=== PATIENT | female | born 1980 | race African-American/Black ===

== ENCOUNTER 2018-10-23 23:37 | Emergency (ER) | payer MEDICARE, MEDICAID ==
[~2018-10-23] VITALS: Ht 154.9 cm; Wt 81.6 kg
[~2018-10-23 23:37] MED LIST: CIPROFLOXACIN500 M2 ORAL; NAPROSYN500 M1 ORAL; NKM
--- NOTE | 2018-10-24 | NUR ---
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
[2018-10-24 00:30] VITALS: BP 113/68
[2018-10-24 00:57] LABS: BASOPHILS % (AUTO) 0.8 % (0.0-2.0); EOSINOPHILS % (AUTO) 1.3 % (0.0-3.0); HEMATOCRIT 35.7 % (37.0-47.0); HEMOGLOBIN 11.5 G/DL (12.0-16.0); LYMPHOCYTES % (AUTO) 27.8 % (20.0-45.0); MEAN CORPUSCULAR VOLUME 87 FL (80-99); MONOCYTES % (AUTO) 7.2 % (1.0-10.0); NEUTROPHILS % (AUTO) 62.9 % (45.0-75.0); PLATELET COUNT 223 K/UL (150-450); RED BLOOD COUNT 4.12 M/UL (4.20-5.40); RED CELL DISTRIBUTION WIDTH 15.6 % (11.6-14.8); WHITE BLOOD COUNT 8.7 K/UL (4.8-10.8)
[2018-10-24] MEDS ORDERED: ACETAMINOPHEN-1 EAC1 ORAL (01:00)
--- NOTE | 2018-10-24 01:00 | NUR ---
ED Nurse Note: Pt very hard iv stick, many nurses attempted, md changed order to oral zofran and im morphine, as pt being prepared for med, pt refused and md at bedside and placed jugular line, pt labs then drawn and pt now to be medicated ivp again, oral zofran returned and morphine given ivp, pt on cardiac monitoring, pt asking for morphine constantly, will continue to closely montior.
--- NOTE | 2018-10-24 01:00 | Emergency Room Report ---
History of Present Illness General Chief Complaint: Gastrointestinal Bleed Source: Patient Present Illness HPI Is a 38-year-old female whose been here multiple time for different type of pain complaint. She presents with chief complaint of abdominal pain with rectal bleeding. She saw her primary care sent in for evaluation. Patient pain of diffuse abdominal pain with nausea and vomiting. No diarrhea. She had an enema and noticed some blood when she wiped. Denies any other complaint. Pain is 9 out of 10. No radiation. Vomiting is nonbloody nonbilious. Never had rectal bleeding before. Allergies: Coded Allergies: IBUPROFEN (Verified Allergy, Unknown, 10/23/18) KETOROLAC (Verified Allergy, Unknown, 10/23/18) Uncoded Allergies: VICODIN (Adverse Reaction, Severe, DIZZINESS,LIGHT HEADED, 05/15/11) Patient History Past Medical History: see triage record, old chart reviewed Past Surgical History: other Pertinent Family History: none Social History: Denies: smoking Last Menstrual Period: 10/06/2018 Now: No : 1 Para: 1 Immunizations: other Reviewed Nursing Documentation: PMH: Agreed; PSxH: Agreed Nursing Documentation-PMH Past Medical History: No History, Except For Hx Cardiac Problems: No - OVARIAN CYST Review of Systems Eye: Denies: eye pain, blurred vision ENT: Denies: ear pain, nose congestion, throat swelling Respiratory: Denies: cough, shortness of breath Cardiovascular: Denies: chest pain, palpitations Gastrointestinal: Reports: abdominal pain, nausea, vomiting; Denies: diarrhea Musculoskeletal: Denies: back pain, joint pain Skin: Denies: rash Neurological: Denies: headache, numbness Endocrine: Denies: increased thirst, increased urine Hematologic/Lymphatic: Denies: easy bruising All Other Systems: negative except mentioned in HPI Physical Exam Vital Signs Date Time Temp Pulse Resp B/P (MAP) Pulse Ox O2 Delivery O2 Flow Rate FiO2 10/23/18 23:41 98.1 98 16 100/64 100 Room Air vitals normal Sp02 EP Interpretation: reviewed, normal General Appearance: well appearing, no apparent distress, alert Head: normocephalic, atraumatic Eyes: bilateral eye PERRL, bilateral eye EOMI ENT: hearing grossly normal, normal pharynx Neck: full range of motion, supple, no meningismus Respiratory: chest non-tender, lungs clear, normal breath sounds Cardiovascular #1: regular rate, rhythm, no murmur Gastrointestinal: normal bowel sounds, no mass, no organomegaly, no bruit, non- distended, tenderness - Mild, diffuse, soft Rectal: other - No hemorrhoids. Brown stool. Heme-negative. Musculoskeletal: back normal, gait/station normal, normal range of motion Psychiatric: mood/affect normal Skin: warm/dry Medical Decision Making Diagnostic Impression: Primary Impression: Abdominal pain Qualified Codes: R10.84 - Generalized abdominal pain Additional Impression: Rectal bleeding ER Course Patient with abdominal pain. No evidence of any acute abdomen or obstruction. No evidence of appendicitis. The source of rectal bleeding this could be internal hemorrhoid. There is no evidence of any bleeding here. No vomiting here. Hemoglobin stable. We'll discharge home. Lab Results Impression labs normal CT/MRI/US Diagnostic Results CT/MRI/US Diagnostic Results : Imaging Test Ordered: CT abdomen and pelvis Impression negative per radiologist Last Vital Signs Date Time Temp Pulse Resp B/P (MAP) Pulse Ox O2 Delivery O2 Flow Rate FiO2 10/23/18 23:41 98.1 98 16 100/64 100 Room Air Status: improved Disposition: HOME, SELF-CARE Condition: Stable Scripts Acetaminophen With Codeine (T#3) (TYLENOL #3 TAB*) Y Tab 1 TAB ORAL Q8H PRN for For Pain, #20 TAB Prov: Constantino Davies MD 10/24/18 Referrals: Laxmi Forrester MD (PCP) Additional Instructions: Follow-up with your doctor in 7 days. You may need a referral to see a jewelry maker. Return of worse. Constantino Davies MD Oct 24, 2018 01:01
[2018-10-24 01:08] LABS: ANION GAP 11 mmol/L (5-15); BLOOD UREA NITROGEN 11 mg/dL (7-18); CARBON DIOXIDE 25 MMOL/L (21-32); CHLORIDE 105 MMOL/L (98-107); CREATININE 0.9 MG/DL (0.55-1.30); POTASSIUM 3.9 MMOL/L (3.5-5.1); SODIUM 141 MMOL/L (136-145)
[2018-10-24 01:13] LABS: ALANINE AMINOTRANSFERASE 27 U/L (12-78); ALBUMIN 3.5 G/DL (3.4-5.0); ALKALINE PHOSPHATASE 75 U/L (46-116); ASPARTATE AMINO TRANSFERASE 28 U/L (15-37); BILIRUBIN,TOTAL 0.2 MG/DL (0.2-1.0)
[2018-10-24] MEDS ORDERED: Morphine Sulfate 4mg/ml Inj (IV USE ONLY) IVP ONE ×4 (01:15→02:00)
[2018-10-24 01:16] LABS: BILIRUBIN, URINE NEGATIVE (NEGATIVE); GLUCOSE, URINE (UA) NEGATIVE (NEGATIVE); KETONES,URINE NEGATIVE (NEGATIVE); LEUKOCYTE ESTERASE ,URINE 1+ (NEGATIVE); NITRITE,URINE NEGATIVE (NEGATIVE); PH,URINE 7 (4.5-8.0); PROTEIN,URINE 1+ (NEGATIVE); UROBILINOGEN,URINE NORMAL MG/DL (0.0-1.0)
[2018-10-24 01:30] LABS: APPEARANCE,URINE CLEAR; COLOR,URINE YELLOW
[2018-10-24] MEDS ORDERED: Morphine Sulfate 4mg/ml Inj (IV USE ONLY) ONE (02:00)
[2018-10-24] MEDS ORDERED: HYDROmorphone 1mg/ml Carpuject ONE (02:25)
[2018-10-24] MEDS ORDERED: HYDROmorphone 1mg/ml Carpuject IVP ONE (02:30)
[2018-10-24 02:40] VITALS: BP 121/72
--- NOTE | 2018-10-24 02:50 | NUR ---
ED Nurse Note: pt completed all test, results negative for any acute illnesses, pt is being d/c to home, pt is awake, alert and oriented x 4, pt father present to drive her, pt given f/u info, after care instructions and prescription for pain meds, pt asking for dilaudid prescription, md aware, prescrioption given for tylenol#3 and pt angry, pt leaving ambulatory, iv line and armband removed without complications, nad noted during pt discharge.
[2018-10-24 03:00] VITALS: BP 121/72
--- NOTE | 2018-10-24 09:27 | Diagnostic Imaging Report ---
Indication: Abdominal pain, back pain and vomiting x2 days Technique: Spiral acquisitions obtained through the abdomen and pelvis. No oral contrast utilized, per emergency room physician request No IV contrast utilized, per referring physician request.. Multiplanar reconstructions were generated. Total dose length product 828.11 mGycm. CTDIvol(s) 16.82 mGy. Dose reduction achieved using automated exposure control Comparison: 05/12/2011 Findings: No evidence of diverticulosis or diverticulitis. The appendix is not definitely visualized, but no findings to suggest acute appendicitis are evident. No small bowel distention. There is questionably trace free pelvic fluid. No free intraperitoneal gas. Distal esophagus, stomach, duodenum are unremarkable. Lack of IV contrast limits assessment of the solid organs. The liver, gallbladder, bile ducts, pancreas, spleen, adrenals, kidneys are unremarkable. No renal or ureteral calculi, hydronephrosis, or hydroureter demonstrated. No pelvic mass or adenopathy. No retroperitoneal or mesenteric mass or adenopathy The included lung bases demonstrate some groundglass opacity, may in part be an artifact of respiratory motion. The bones are unremarkable Compared to prior exam, previously demonstrated left ovarian cystic lesion is no longer evident. Impression: Essentially unremarkable exam. No acute abnormality This agrees with the preliminary interpretation provided overnight by [facility] service. The CT scanner at [facility] is accredited by the [employer] and the scans are performed using protocols designed to limit radiation exposure to as low as reasonably achievable to attain images of sufficient resolution adequate for diagnostic evaluation.
== END 2018-10-24 03:00 | disposition home or self-care (01) ==
LOC: EMR 23:59
DX: R10.84 Generalized abdominal pain (principal); K62.5 Hemorrhage of anus and rectum; Z88.6 Allergy status to analgesic agent
CPT/HCPCS: 36415; 74176; 80053; 81003; 81025; 83690; 85025; 96361; 96374; 96375; 96376; 99284; J1170; J2270; J2405

== ENCOUNTER 2019-01-22 22:00 | Emergency (ER) | payer MEDICARE, MEDICAID ==
[~2019-01-22] VITALS: Ht 154.9 cm; Wt 72.6 kg
[~2019-01-22 22:00] MED LIST changes: +ACETAMINOPHEN-1 EAC1 ORAL
[2019-01-22 22:05] VITALS: BP 112/68
[2019-01-22] MEDS ORDERED: Mylanta II UD 30ml ORAL ONE (22:15)
[2019-01-22] MEDS ORDERED: Lidocaine 2% Visc 15ml soln ORAL ONE (22:15)
[2019-01-22 22:43] LABS: BASOPHILS % (AUTO) 0.9 % (0.0-2.0); EOSINOPHILS % (AUTO) 0.4 % (0.0-3.0); HEMATOCRIT 36.7 % (37.0-47.0); HEMOGLOBIN 11.8 G/DL (12.0-16.0); LYMPHOCYTES % (AUTO) 21.8 % (20.0-45.0); MEAN CORPUSCULAR VOLUME 85 FL (80-99); MONOCYTES % (AUTO) 4.5 % (1.0-10.0); NEUTROPHILS % (AUTO) 72.5 % (45.0-75.0); PLATELET COUNT 217 K/UL (150-450); RED BLOOD COUNT 4.33 M/UL (4.20-5.40); RED CELL DISTRIBUTION WIDTH 14.8 % (11.6-14.8); WHITE BLOOD COUNT 12.6 K/UL (4.8-10.8)
[2019-01-22] MEDS ORDERED: Acetaminophen 500mg (ES) tab ORAL ONE (22:45)
[2019-01-22 22:53] LABS: ANION GAP 11 mmol/L (5-15); BLOOD UREA NITROGEN 12 mg/dL (7-18); CALCIUM 9.4 MG/DL (8.5-10.1); CARBON DIOXIDE 24 MMOL/L (21-32); CHLORIDE 103 MMOL/L (98-107); CREATININE 0.9 MG/DL (0.55-1.30); POTASSIUM 3.9 MMOL/L (3.5-5.1); SODIUM 138 MMOL/L (136-145)
[2019-01-22 22:57] LABS: ALANINE AMINOTRANSFERASE 34 U/L (12-78); ALBUMIN 4.1 G/DL (3.4-5.0); ALKALINE PHOSPHATASE 83 U/L (46-116); ASPARTATE AMINO TRANSFERASE 30 U/L (15-37); BILIRUBIN,TOTAL 0.6 MG/DL (0.2-1.0)
--- NOTE | 2019-01-22 23:03 | Emergency Room Report ---
History of Present Illness General Chief Complaint: Abdominal Pain Source: Patient Present Illness HPI Is a 38-year-old female with history of anxiety. She presents with chief complaint of epigastric pain and chest pain. This is a recurrent problem. She' s been here several times for this already. She said the pain been ongoing for 2 days. Lenora tightness and squeezing in nature. No nausea no vomiting or told me that she doesn't have much pain other than the squeezing sensation. Nothing made it better. Nothing made it worse. No radiation. No diaphoresis. Similar symptom in the past. Said that she had an echocardiogram in the office of Dr. Forrester. Said that his show fluid around her heart. Said that it did not need surgery. She is requesting another echocardiogram and cardiology consult for this. Allergies: Coded Allergies: IBUPROFEN (Verified Allergy, Unknown, 10/23/18) KETOROLAC (Verified Allergy, Unknown, 10/23/18) Uncoded Allergies: VICODIN (Adverse Reaction, Severe, DIZZINESS,LIGHT HEADED, 05/15/11) Patient History Past Medical History: see triage record, old chart reviewed Past Surgical History: none Pertinent Family History: none Social History: Denies: smoking Last Menstrual Period: 12/30/18 Now: No Immunizations: other Reviewed Nursing Documentation: PMH: Agreed; PSxH: Agreed Nursing Documentation-PMH Past Medical History: No History, Except For Hx Cardiac Problems: Yes Review of Systems Eye: Denies: eye pain, blurred vision ENT: Denies: ear pain, nose congestion, throat swelling Respiratory: Denies: cough, shortness of breath Cardiovascular: Reports: chest pain; Denies: palpitations Gastrointestinal: Reports: abdominal pain; Denies: diarrhea, nausea, vomiting Musculoskeletal: Denies: back pain, joint pain Skin: Denies: rash Neurological: Denies: headache, numbness Endocrine: Denies: increased thirst, increased urine Hematologic/Lymphatic: Denies: easy bruising All Other Systems: negative except mentioned in HPI Physical Exam Vital Signs Date Time Temp Pulse Resp B/P (MAP) Pulse Ox O2 Delivery O2 Flow Rate FiO2 01/22/19 21:55 98.8 101 14 112/68 98 Room Air vitals normal Sp02 EP Interpretation: reviewed, normal General Appearance: well appearing, no apparent distress, alert Head: normocephalic, atraumatic Eyes: bilateral eye PERRL, bilateral eye EOMI ENT: hearing grossly normal, normal pharynx Neck: full range of motion, supple, no meningismus Respiratory: chest non-tender, lungs clear, normal breath sounds Cardiovascular #1: regular rate, rhythm, no gallop, no JVD, no murmur, no rub Gastrointestinal: normal bowel sounds, non tender, no mass, no organomegaly, no bruit, non-distended Musculoskeletal: back normal, gait/station normal, normal range of motion Psychiatric: mood/affect normal Skin: warm/dry Medical Decision Making Diagnostic Impression: Primary Impression: Chest pain Qualified Codes: R07.9 - Chest pain, unspecified Additional Impression: Abdominal pain Qualified Codes: R10.13 - Epigastric pain ER Course She with epigastric and chest pain. I suspect this is more psychogenic in nature versus drug-seeking behavior. Even though she said she did not have any pain she asked for pain medication. At that her pain medication at home is not helping. On the [employer] system, she gets multiple prescriptions from different doctors. She get regular Xanax several times a month. EKG is normal. Her chest x-rays show normal cardiac silhouette. I see no evidence of cardiac tamponade not or significant effect from her pericardial effusion. I see no no indication for emergent echocardiogram. I see no need for emergent cardiac she consult in the ER. Patient has seen a paraffin machine operator already. Her pericardial effusion is not significant. I discussed the case with Dr. Forrester who said that echocardiogram was not significant. She has been referred to cardiology already. She may need referral to see GI doctor for endoscopy. I will discharge this patient home with copies of her EKG, chest x-ray and labs. Lab Results Impression labs unremarkable EKG Diagnostic Results Rate: normal Rhythm: NSR ST Segments: no acute changes Rhythm Strip Diag. Results EP Interpretation: yes Rate: 85 Rhythm: NSR, no PVC's, no ectopy Chest X-Ray Diagnostic Results Chest X-Ray Diagnostic Results : Chest X-Ray Ordered: Yes # of Views/Limited/Complete: 1 View Indication: Chest Pain EP Interpretation: Yes Interpretation: no consolidation, no effusion, no pneumothorax, no acute cardiopulmonary disease Impression: No acute disease Electronically Signed by: Constantino Davies MD Last Vital Signs Date Time Temp Pulse Resp B/P (MAP) Pulse Ox O2 Delivery O2 Flow Rate FiO2 01/22/19 22:05 98.8 101 14 112/68 98 Room Air Status: improved Disposition: HOME, SELF-CARE Condition: Stable Scripts Pantoprazole* (PROTONIX*) 40 Mg Tablet. 40 MG ORAL DAILY, #30 TAB Prov: Constantino Davies MD 01/22/19 Referrals: Laxmi Forrester MD (PCP) Additional Instructions: Follow-up with your doctor in 7 days. You may need a referral to see a GI doctor for endoscopy. Follow-up with your paraffin machine operator to call for appointment. Return if symptom worsen. Constantino Davies MD Jan 22, 2019 23:03
[2019-01-22] MEDS ORDERED: PROTONIX40 MG ORAL (23:04)
[2019-01-22] MEDS ORDERED: HYDROcodone/Acetamin 5/325 tab ORAL ONE (23:15)
[2019-01-22] MEDS ORDERED: Tylenol #3 tab (300mg/30mg) ORAL ONE (23:15)
[2019-01-22 23:32] VITALS: BP 117/65
--- NOTE | 2019-01-23 09:26 | Diagnostic Imaging Report ---
Indication: Chest pain Technique: One view of the chest Comparison: 06/25/2011 Findings: Lungs and pleural spaces are clear. Heart size is normal. No significant interim change Impression: No acute process
--- NOTE | 2019-01-26 15:46 | Cardiology Report ---
APPROVED REPORT EKG Measurement Heart [id number] NM [id number] Normal sinus rhythm Normal ECG
== END 2019-01-22 23:32 | disposition home or self-care (01) ==
LOC: EDBD 22:00 → EMR 22:13
DX: R07.9 Chest pain, unspecified (principal); R10.13 Epigastric pain; F41.9 Anxiety disorder, unspecified; Z88.6 Allergy status to analgesic agent
CPT/HCPCS: 36415; 71045; 80053; 84484; 85025; 93005; 96360; 99284